=== PATIENT | male | born 1995 | race American Indian/Alaskan Native ===

== ENCOUNTER 2019-03-29 18:04 | Emergency (ER) | payer SELFPAY ==
--- NOTE | 2019-03-29 21:42 | Emergency Department Report ---
Abscess Boil HPI - HPI Chief Complaint: Skin/Abscess/Foreign Body Stated Complaint: POSS SPIDER BITE Time Seen by Provider: 03/29/19 21:36 Severity: Mild History: Yes Pain, Yes Insect Bite, No Fever, No Purulent Drainage, No Numbness, No Foreign Body, No Previous History Addl Reference Text: pt presents for infected insect bite to left thigh, x 3 days. There is no fever , chills, n/v, or drainage. Home Medications: Previous Rx's Medication Instructions Recorded Last Taken Type Acetaminophen/Codeine 1 tab PO Q6H PRN #20 tab 07/07/14 Unknown Rx [Acetaminophen-Codeine #3 TAB] Ibuprofen [Motrin 800 MG tab] 800 mg PO Q8HR PRN #30 tablet 03/29/19 Unknown Rx cephALEXin [Keflex] 500 mg PO Q8HR 10 Days #30 cap 03/29/19 Unknown Rx Allergies/Adverse Reactions: Allergies Allergy/AdvReac Type Severity Reaction Status Date / Time No Known Allergies Allergy Unverified 07/07/14 00:48 ED Review of Systems ROS: Stated complaint: POSS SPIDER BITE Other details as noted in HPI Constitutional: denies: chills, fever Eyes: denies: eye pain, eye discharge, vision change ENT: denies: ear pain, throat pain Respiratory: denies: cough, shortness of breath, wheezing Cardiovascular: denies: chest pain, palpitations Endocrine: no symptoms reported Gastrointestinal: denies: abdominal pain, nausea, diarrhea Genitourinary: denies: urgency, dysuria Musculoskeletal: denies: back pain, joint swelling, arthralgia Skin: lesions (infected insect bite left thigh) Neurological: denies: headache, weakness, paresthesias Psychiatric: denies: anxiety, depression Hematological/Lymphatic: denies: easy bleeding, easy bruising ED Past Medical Hx - Past Medical History Previous Medical History?: No - Surgical History Past Surgical History?: No - Social History Smoking Status: Current Every Day Smoker Substance Use Type: Marijuana - Medications Home Medications: Home Medications Medication Instructions Recorded Confirmed Last Taken Type Acetaminophen/Codeine 1 tab PO Q6H PRN #20 tab 07/07/14 Unknown Rx [Acetaminophen-Codeine #3 TAB] Ibuprofen [Motrin 800 MG tab] 800 mg PO Q8HR PRN #30 tablet 03/29/19 Unknown Rx cephALEXin [Keflex] 500 mg PO Q8HR 10 Days #30 cap 03/29/19 Unknown Rx ED Abscess Boil Physical Exam - Exam General: Vital signs noted. No distress. Alert and acting appropriately. Size: 1 cm Exam: Yes Tenderness, Yes Surrounding Cellulites/Erythema (mild less than 1 cm area ), Yes Normal Neurologic Exam, Yes Normal Circulation, No Fluctuance, No Lymphangitis, No Crepitation, No Heart Murmur ED Course Vital Signs 03/29/19 18:49 Temperature 98.7 F Pulse Rate 63 Respiratory 18 Rate Blood Pressure 123/75 O2 Sat by Pulse 100 Oximetry Critical care attestation.: If time is entered above; I have spent that time in minutes in the direct care of this critically ill patient, excluding procedure time. ED Medical Decision Making - Medical Decision Making this is a simple infected insect bite nonfluctuant plan: keflex, ibuprofen, wash with soap and water, follow up with pcp in 2-3 days return to emergency if symptoms worsen. pt verbalized agreement and understanding of same. ED Disposition Clinical Impression: Infected insect bite Qualifiers: Encounter type: initial encounter Qualified Code(s): W57.XXXA - Bitten or stung by nonvenomous insect and other nonvenomous arthropods, initial encounter Disposition: DC-01 TO HOME OR SELFCARE Is pt being admited?: No Does the pt Need Aspirin: No Condition: Stable Instructions: Insect Bite or Sting (ED), Cellulitis (ED) Prescriptions: cephALEXin [Keflex] 500 mg PO Q8HR 10 Days #30 cap Ibuprofen [Motrin 800 MG tab] 800 mg PO Q8HR PRN #30 tablet PRN Reason: pain fever Referrals: [facility] [Outside] - 3-5 Days Forms: Work/School Release Form(ED) Time of Disposition: 21:45
[2019-03-29 22:06] VITALS: BP 125/68
== END 2019-03-29 21:55 | disposition home or self-care (01) ==
LOC: ED 18:04
DX: S70.362A Insect bite (nonvenomous), left thigh, initial encounter (principal); F17.200 Nicotine dependence, unspecified, uncomplicated; F12.10 Cannabis abuse, uncomplicated; Z79.899 Other long term (current) drug therapy; W57.XXXA Bitten or stung by nonvenomous insect and other nonvenomous arthropods, initial encounter; Y93.89 Activity, other specified; Y92.89 Other specified places as the place of occurrence of the external cause; Y99.8 Other external cause status